=== PATIENT | male | born 1990 | race Hispanic/Latino ===

== ENCOUNTER 2016-11-27 01:04 | Emergency (ER) | payer OTHER ==
--- NOTE | 2016-11-27 01:30 | ED PSYCHIATRIC COMPLAINT ---
History of Present Illness General Chief Complaint: Psychiatric Related Complaint Stated Complaint: +SI COMMENTS Source: patient, EMS, police Exam Limitations: no limitations Vital Signs & Intake/Output Vital Signs & Intake/Output Vital Signs Date Time Temp Pulse Resp B/P B/P Pulse O2 O2 Flow FiO2 Mean Ox Delivery Rate 11/27 0226 95.8 114 18 134/91 96 Room Air 11/27 0108 95.7 123 18 149/97 95 Room Air Triage Note: PT BIBA VOLUNTARILY FOR PSYCH EVALUATION. PT ARRIVES CALM AND COOPERATIVE. WAS TEXTING GF WITH SI COMMENTS. Triage Nurses Notes Reviewed? yes HPI: Patient was talking to his girlfriend about multiple stressors that he has been under lately. Patient told her that he had a fleeting thought of harming himself. Patient's girlfriend became concerned so she called the police. Patient came in voluntarily for evaluation. Patient states that he has no plan. Patient states that he never self. Patient denies any homicidal ideations. Patient lives at home with his mother and his brother. Past History Travel History Traveled to [place] past 21 day No Medical History Any Pertinent Medical History? none Surgical History Surgical History: non-contributory Psychosocial History Tobacco Use: Never used ETOH Use: occasional use Illicit Drug Use: denies illicit drug use Family History Hx Contributory? No Review of Systems Review of Systems Constitutional: Reports: no symptoms. Respiratory: Reports: no symptoms. Cardiovascular: Reports: no symptoms. GI: Reports: no symptoms. Musculoskeletal: Reports: no symptoms. Neurological/Psychological: Reports: see HPI, depressed. Immunologic/Allergic: Reports: no symptoms. Physical Exam Physical Exam General Appearance: well developed/nourished, no apparent distress, alert, awake Head: atraumatic, normal appearance Eyes: Bilateral: PERRL, EOMI. Ears, Nose, Throat: normal pharynx, normal ENT inspection Neck: normal inspection, supple, full range of motion Respiratory: normal breath sounds, chest non-tender, no respiratory distress, lungs clear Cardiovascular: regular rate/rhythm, normal peripheral pulses Gastrointestinal: normal bowel sounds, soft, non-tender, no organomegaly Extremities: normal range of motion Neurological/Psychiatric: no motor/sensory deficits, awake, alert, normal mood/ affect, calm, oriented x 3 Appearance/Memory/Insight: appropriate appearance, appropriate insight Behavoir/Eye Contact/Speech: cooperative, normal speech, good eye contact Thoughts/Hallucinations: normal thought pattern, no apparent hallucination Skin: intact, normal color, warm/dry SAD PERSONS SAD PERSONS Response Value Male Sex? yes 1 Age <19 or >45 years? yes 1 Single//? yes 1 Social Support? has support 0 Total 3 SAD PERSONS Done? yes Progress Differential Diagnosis: drug intoxication, drug overdose, drug withdrawal, electrolyte abnormality Plan of Care: Patient is calm and cooperative. Patient states that he really has no intention of hurting himself. His mother is at the bedside and she feels comfortable with him going home. Patient promises to call 211 for any concerns. Departure Departure Disposition: HOME OR SELF CARE Condition: Stable Clinical Impression Primary Impression: Depression Additional Instructions: CALL 211 FOR ANY CONCERNS OR THOUGHTS OF HURTING YOURSELF OR ANYONE ELSE. Departure Forms: Customer Survey General Discharge Information
[2016-11-27 02:26] VITALS: BP 134/91
== END 2016-11-27 02:27 ==
LOC: ERH 01:04
DX: F32.9 Major depressive disorder, single episode, unspecified (principal)